=== PATIENT | male | born 1960 | race Caucasian/White ===

== ENCOUNTER 2021-09-03 16:24 | Emergency (ER) | payer BC ==
[~2021-09-03] VITALS: Ht 185.4 cm; Wt 102.1 kg
[2021-09-03 16:34] VITALS: BP_SYST 193
[2021-09-03] MEDS ORDERED: MORPHINE 4 MG INJ. 4 MG/ML VIAL IVP ONE (17:00)
[2021-09-03 17:58] LABS: BASOPHILS # (AUTO) 0.1 K/uL (0.0-0.2); BASOPHILS % (AUTO) 1.4 % (0.0-2.0); EOSINOPHILS % (AUTO) 0.1 % (0.0-4.0); HEMATOCRIT 42.4 % (36-54); HEMOGLOBIN 14.3 g/dL (14.0-18.0); LYMPHOCYTES # (AUTO) 0.9 K/uL (1.0-5.5); LYMPHOCYTES % (AUTO) 12.7 % (20.5-51.5); MEAN CORPUSCULAR HEMOGLOBIN 31 pg (27-31); MEAN CORPUSCULAR HGB CONC 34 % (32-36); MEAN CORPUSCULAR VOLUME 91 fL (79.0-98.0); MONOCYTES # (AUTO) 0.6 K/uL (0.0-1.0); MONOCYTES % (AUTO) 7.9 % (1.7-9.3); NEUTROPHILS # (AUTO) 5.7 K/uL (1.8-7.7); NEUTROPHILS % (AUTO) 77.9 % (40.0-70.0); PLATELET COUNT (AUTO) 236 K/uL (130-430); RED BLOOD CELL COUNT(AUTO) 4.67 MIL/uL (4.2-6.2); RED CELL DISTRIBUTION WIDTH 16.6 % (9.0-15.0); WHITE BLOOD COUNT (AUTO) 7.4 K/uL (4.8-10.8)
[2021-09-03 18:04] LABS: CALCIUM 9.1 mg/dL (8.4-11.0); CREATININE 1.05 mg/dL (0.55-1.30); POTASSIUM 3.4 mmol/L (3.5-5.1)
[2021-09-03 18:12] LABS: BILIRUBIN,URINE NEGATIVE (NEGATIVE); BLOOD, URINE 2+ (NEGATIVE); GLUCOSE,URINE NEGATIVE (NEGATIVE); KETONES,URINE 2+ (NEGATIVE); LEUKOCYTE ESTERASE ,URINE NEGATIVE (NEGATIVE); NITRITE, URINE NEGATIVE (NEGATIVE); PROTEIN URINE 3+ (NEGATIVE); UROBILINOGEN,URINE 0.2 (0.2-1.0)
[2021-09-03] MEDS ORDERED: LABETALOL 100 MG/ 20ML VIAL IVP ONE (18:15)
[2021-09-03 18:16] LABS: ALBUMIN 4.1 g/dL (3.4-4.8); TOTAL BILIRUBIN 1.4 mg/dL (0.0-1.0)
[2021-09-03] MEDS ORDERED: ONDANSETRON HCL 4 MG/2 ML VIAL ONE (18:44)
[2021-09-03] MEDS ORDERED: ONDANSETRON HCL 4 MG/2 ML VIAL IVP ONE (18:45)
[2021-09-03 18:47] LABS: CLARITY/URINE HAZY (CLEAR); COLOR,URINE AMBER (YELLOW)
[2021-09-03] MEDS ORDERED: NACL 0.9% 1,000 ML IV ONE (19:15)
[2021-09-03 19:41] LABS: BACTERIA,URINE FEW /HPF (None Seen); RBC,URINE 20-50 /HPF (0-3)
[2021-09-03 19:42] LABS: COARSE GRANULAR CASTS,URINE 0-10 /LPF (None Seen)
[2021-09-03 19:43] LABS: MUCUS,URINE 2+ /LPF (None Seen)
[2021-09-03] MEDS ORDERED: LOSARTAN POTASSIUM 50 MG TABLET (COZAAR) PO ONE (20:15)
[2021-09-03] MEDS ORDERED: cloNIDine HCL 0.1 MG TABLET PO ONE (20:15)
[2021-09-03] MEDS ORDERED: HYDROCHLOROTHIAZIDE 12.5 MG CAPSULE (HCTZ) PO ONE (20:15)
[2021-09-03] MEDS ORDERED: CARVEDILOL 6.25 MG TABLET (COREG) PO ONE (20:15)
[2021-09-03] MEDS ORDERED: cloNIDine HCL 0.1 MG TABLET ONE (20:17)
[2021-09-03] MEDS ORDERED: LOSARTAN POTASSIUM 50 MG TABLET (COZAAR) ONE (20:30)
[2021-09-03] MEDS ORDERED: hydrALAZINE HCL 20 MG/ML VIAL IVP ONE (23:15)
[2021-09-03 23:48] VITALS: BP_SYST 196
== END 2021-09-03 23:48 | disposition left against medical advice (07) ==
LOC: SED 16:24
DX: R10.9 Unspecified abdominal pain (principal); R11.2 Nausea with vomiting, unspecified; R77.8 Other specified abnormalities of plasma proteins; I10 Essential (primary) hypertension
CPT/HCPCS: 36415; 71045; 74177; 76376; 80053; 81000; 82962; 83690; 84484; 85025; 87086; 93005; 96361; 96374; 96375; 99285; J0360; J2270; J2405; J3490; J7030; Q9967

== ENCOUNTER 2021-12-11 12:56 | Emergency (ER) | payer BC, SELFPAY ==
[~2021-12-11] VITALS: Ht 185.4 cm; Wt 106.6 kg
[2021-12-11 13:11] VITALS: BP_SYST 207
== END 2021-12-11 14:04 | disposition left against medical advice (07) ==
LOC: SED 12:56
DX: R10.9 Unspecified abdominal pain (principal); Z53.21 Procedure and treatment not carried out due to patient leaving prior to being seen by health care provider

== ENCOUNTER 2023-02-20 18:08 | Inpatient (IN) | payer BC ==
[~2023-02-20] VITALS: Ht 185.4 cm; Wt 100.0 kg
--- NOTE | 2023-02-20 18:11 | NUR ---
Placed in room 01 . Placed on lease picker, blood pressure machine and pulse oximeter. To gown for exam. Side rails up. Report given to James CANTU
--- NOTE | 2023-02-20 18:11 | NUR ---
ER at bedside examining patient.
[2023-02-20 18:13] VITALS: BP_SYST 180
[2023-02-20] MEDS ORDERED: FUROSEMIDE 100 MG/10 ML VIAL IVP ONE (18:15)
--- NOTE | 2023-02-20 18:15 | NUR ---
EMT SWABBED FOR BOTH COVID AND FLU, PHLEBOTOMY AT BEDSIDE FOR LAB DRAW
--- NOTE | 2023-02-20 18:15 | NUR ---
RECIEVED PT IN BED #1 BIBA FROM [facility]RGENT [facility]ARE FOR CC OF WORSENING SOB. THE PATIENT NEEDED HIGHER LEVEL OF CARE AND [facility] WAS CALLED FOR TRANSFER. PT IS STABLE, MILD RESPIRATORY DISTRESS ON BIPAP, TACHYPNEIC, AND HYPERTENSIVE. PT AWAITING ADDITIONAL ASSESSMENTS BY ED MD FOR PLAN OF CARE WITH DISPOSITION.
[2023-02-20 18:43] LABS: BASOPHILS # (AUTO) 0.1 K/uL (0.0-0.2); BASOPHILS % (AUTO) 2.7 % (0.0-2.0); EOSINOPHILS # (AUTO) 0.2 K/uL (0.0-0.4); EOSINOPHILS % (AUTO) 4.4 % (0.0-4.0); HEMATOCRIT 31.8 % (36-54); HEMOGLOBIN 10.7 g/dL (14.0-18.0); LYMPHOCYTES # (AUTO) 0.8 K/uL (1.0-5.5); LYMPHOCYTES % (AUTO) 18.6 % (20.5-51.5); MEAN CORPUSCULAR HEMOGLOBIN 29 pg (27-31); MEAN CORPUSCULAR HGB CONC 34 % (32-36); MEAN CORPUSCULAR VOLUME 87 fL (79.0-98.0); MONOCYTES # (AUTO) 0.6 K/uL (0.0-1.0); MONOCYTES % (AUTO) 14.4 % (1.7-9.3); NEUTROPHILS # (AUTO) 2.6 K/uL (1.8-7.7); NEUTROPHILS % (AUTO) 59.9 % (40.0-70.0); PLATELET COUNT (AUTO) 185 K/uL (130-430); RED BLOOD CELL COUNT(AUTO) 3.64 MIL/uL (4.2-6.2); RED CELL DISTRIBUTION WIDTH 15.4 % (9.0-15.0); WHITE BLOOD COUNT (AUTO) 4.3 K/uL (4.8-10.8)
--- NOTE | 2023-02-20 18:55 | NUR ---
NOTIFIED PATIENT'S TO CONFIRM HIS LOCATION OF HOSPITAL. FAMILY WILL COME BY WITH HOME MEDICATIONS FOR MED RECONCILIATION.
[2023-02-20] MEDS ORDERED: cloNIDine HCL 0.1 MG TABLET PO ONE (19:15)
[2023-02-20 19:28] LABS: ALANINE AMINOTRANSFERASE 25 U/L (12-78); ALBUMIN 3.4 g/dL (3.4-4.8); ANION GAP 13 (5-15); ASPARTATE AMINOTRANSFERASE 23 U/L (10-37); CALCIUM 8.8 mg/dL (8.4-11.0); CHLORIDE 107 mmol/L (98-107); CREATININE 1.74 mg/dL (0.55-1.30); GFR AFRICAN AMERICAN 51 mL/min (>90); GLUCOSE 97 mg/dL (70-99); TOTAL BILIRUBIN 0.6 mg/dL (0.0-1.0); UREA NITROGEN, BLOOD 27 mg/dL (8-21)
[2023-02-20 19:35] LABS: BILIRUBIN,URINE NEGATIVE (NEGATIVE); BLOOD, URINE NEGATIVE (NEGATIVE); CLARITY/URINE CLEAR (CLEAR); COLOR,URINE YELLOW (YELLOW); GLUCOSE,URINE NEGATIVE (NEGATIVE); KETONES,URINE NEGATIVE (NEGATIVE); LEUKOCYTE ESTERASE ,URINE NEGATIVE (NEGATIVE); NITRITE, URINE NEGATIVE (NEGATIVE); PROTEIN URINE NEGATIVE (NEGATIVE); UROBILINOGEN,URINE 0.2 (0.2-1.0)
--- NOTE | 2023-02-20 19:46 | NUR ---
URINE OUTPUT 750 ML AFTER LASIX.
--- NOTE | 2023-02-20 20:24 | NUR ---
Admit bed requested Patient will be admitted to care of . Admitted to TELE unit. Diagnosis CHF EXACERBATION Inpatient (Yes or No) Y Observation (Yes or No) N Orientation concerns or request close to nursing station (Yes or No) N Covid Status NEG On vent or bipap YES Isolation requirements N Needs a sitter N From Home (Yes or if No enter name of facility) Y Requires Dialysis (Yes or No) N Med Rec Completed (Yes of No) Y
[2023-02-20] MEDS ORDERED: POTASSIUM CHLORIDE 20 MEQ/PKT PACKET PO ONE (20:30)
[2023-02-20] MEDS ORDERED: IPRATROPIUM/ALBUTEROL SULFATE 3 ML AMPUL.NEB (DUONEB) INH ONE (20:30)
[2023-02-20] MEDS ORDERED: BUSP10TA3 PO (20:34)
[2023-02-20] MEDS ORDERED: CLON0.3T PO (20:35)
[2023-02-20] MEDS ORDERED: LON10 PO (20:36)
[2023-02-20] MEDS ORDERED: SOLI10TA2 PO (20:39)
[2023-02-20] MEDS ORDERED: ARA20 PO (20:40)
[2023-02-20] MEDS ORDERED: LOSA100T4 PO (20:41)
[2023-02-20] MEDS ORDERED: POTA-197 PO (20:42)
[2023-02-20] MEDS ORDERED: LASI20 IVP (20:43)
[2023-02-20] MEDS ORDERED: HYDR25TA4 PO (20:44)
[2023-02-20] MEDS ORDERED: LAM100 PO (20:45)
[2023-02-20] MEDS ORDERED: SILD20TA PO (20:47)
[2023-02-20] MEDS ORDERED: ZOLPIDEM TARTRATE 5 MG TABLET PO PRN (21:00)
[2023-02-20] MEDS ORDERED: MORPHINE 2 MG/ML INJ. SYRINGE IVP PRN ×2 (21:00)
[2023-02-20] MEDS ORDERED: IPRATROPIUM/ALBUTEROL SULFATE 3 ML AMPUL.NEB (DUONEB) INH PRN (21:00)
[2023-02-20] MEDS ORDERED: DOCUSATE SODIUM 100 MG CAPSULE PO PRN (21:00)
[2023-02-20] MEDS ORDERED: MUPIROCIN 2% TOPICAL OINTMENT 22 GM NS PRN (21:00)
[2023-02-20] MEDS ORDERED: ONDANSETRON HCL 4 MG/2 ML VIAL IVP PRN (21:00)
[2023-02-20] MEDS: cloNIDine HCL 0.1 MG TABLET PO SCH (21:00)
[2023-02-20] MEDS ORDERED: MAGNESIUM SULFATE 50 ML IV PRN (21:00)
[2023-02-20] MEDS: LamoTRIgine 100 MG TABLET PO SCH (21:00)
[2023-02-20] MEDS ORDERED: ACETAMINOPHEN 325 MG TABLET PO PRN (21:00)
[2023-02-20] MEDS ORDERED: NACL 0.9% 1,000 ML IV SCH (21:00)
[2023-02-20] MEDS ORDERED: LORazepam 2 MG/ML VIAL IVP PRN (21:00)
[2023-02-20] MEDS: CARVEDILOL 6.25 MG TABLET (COREG) PO SCH (21:00)
--- NOTE | 2023-02-20 22:13 | NUR ---
Patient will be admitted to care of DR LOYOLA. Admitted to ROOM 129B TELE unit. Will go to room . Belongings list completed. Complete and up to date summary report printed. SBAR report to be given at bedside with opportunity for questions.
--- NOTE | 2023-02-20 22:28 | NUR ---
RECEIVED PT FROM ER VIA [facility], DENIED SOB, CP OR ANY PAIN ATT, ON 2L OF OXYGEN VIA N/C. COMPLETE SKIN CHECK AND SKIN INTACT, BLE WITH PITTING EDEMA +2, PATENT IV ACCESS TO LAC, BP ELEVATED, PT STARTED ON DUE MEDS, WILL RECHECK LATER, PT ORIENTED TO ROOM, CALL LIGHT AND BED POSITION, VERBALIZED UNDERSTAND, PT AMBULATORY TO RESTROOM, VOIDING, WILL CONTINUE WITH POC
[2023-02-20 22:32] VITALS: BP_SYST 186
[2023-02-20 22:35] VITALS: BP_SYST 180
[2023-02-20] MEDS: busPIRone HCL 5 MG TABLET PO SCH (22:55)
[2023-02-20] MEDS: HEPARIN SODIUM,PORCINE 5,000 UNITS/ML VIAL SUBCUT SCH (23:09)
[2023-02-20 23:46] VITALS: BP_SYST 154
[2023-02-21] VITALS (7 sets, daily range): BP systolic 142–169
--- NOTE | 2023-02-21 06:00 | NUR ---
CALLED DR KAMALA GONZALES REGARDING PT ELEVATED BP AT THIS TIME BP 169/94, HR 77, HE ORDERED TO GIVE AM DOSE OF COREG 6.25MG AT THIS TIME, ORDER NOTED AND CARRIED OUT, WILL RECHECK BP IN 20MINS, WILL CONTINUE WITH POC
[2023-02-21] MEDS: CARVEDILOL 6.25 MG TABLET (COREG) PO SCH (06:08)
--- NOTE | 2023-02-21 06:53 | NUR ---
PT IN BED, AOX4, DENIED SOB, CP, H/A, DIZZINESS OR ANY PAIN ATT, ON 2L OF OXYGEN VIA N/C. BP RECHECK ATT WAS BP 166/87, HR 76. PT DENIED ANY SX ATT, PT AMBULATORY TO RESTROOM, VOIDING W/O DIFFICULTY, IVF N/S AT 50CC TO LAC ONGOING W/O INFILTRATION, WILL ENDORSE CARE CONTINUITY TO NEXT SHIFT
[2023-02-21 07:51] LABS: BASOPHILS % (AUTO) 0.3 % (0.0-2.0); HEMATOCRIT 34.1 % (36-54); HEMOGLOBIN 11.3 g/dL (14.0-18.0); LYMPHOCYTES # (AUTO) 0.3 K/uL (1.0-5.5); LYMPHOCYTES % (AUTO) 6.3 % (20.5-51.5); MEAN CORPUSCULAR HEMOGLOBIN 29 pg (27-31); MEAN CORPUSCULAR HGB CONC 33 % (32-36); MEAN CORPUSCULAR VOLUME 87 fL (79.0-98.0); NEUTROPHILS % (AUTO) 92.4 % (40.0-70.0); PLATELET COUNT (AUTO) 203 K/uL (130-430); RED BLOOD CELL COUNT(AUTO) 3.91 MIL/uL (4.2-6.2); RED CELL DISTRIBUTION WIDTH 15.8 % (9.0-15.0); WHITE BLOOD COUNT (AUTO) 4.3 K/uL (4.8-10.8)
--- NOTE | 2023-02-21 08:00 | NUR ---
Initial Note: Patient is awake alert x4. Call light in reach. Bed in the lowest position. Side rails x2 up. Vital signs checked and assessment is done. No pain or discomfort at this time. Breakfast is provided. Will continue to monitor.
[2023-02-21 08:07] LABS: CALCIUM 9.1 mg/dL (8.4-11.0); CREATININE 1.49 mg/dL (0.55-1.30)
[2023-02-21] MEDS: cloNIDine HCL 0.1 MG TABLET PO SCH ×3 (08:20→20:55)
[2023-02-21] MEDS: FUROSEMIDE 40 MG/4 ML VIAL IVP SCH (08:22)
[2023-02-21] MEDS: HEPARIN SODIUM,PORCINE 5,000 UNITS/ML VIAL SUBCUT SCH ×2 (08:22→20:59)
[2023-02-21] MEDS: SILDENAFIL CITRATE 20 MG TABLET PO SCH (08:23)
[2023-02-21] MEDS: busPIRone HCL 5 MG TABLET PO SCH ×2 (08:23→20:06)
[2023-02-21] MEDS: MINOXIDIL 10 MG TABLET (LONITEN) PO SCH (08:23)
[2023-02-21] MEDS: LamoTRIgine 100 MG TABLET PO SCH ×2 (08:24→20:07)
[2023-02-21] MEDS ORDERED: AZITHROMYCIN 250 MG TABLET PO ONE (08:45)
[2023-02-21] MEDS ORDERED: HYDROXYCHLOROQUINE SULFATE 200 MG TABLET PO ONE (09:15)
[2023-02-21] MEDS: cefTRIAXone 1 GM in D5W 50 ML IV SCH (11:20)
[2023-02-21] MEDS: POTASSIUM CHLORIDE 20 MEQ TAB.PRT.SR PO PRN (11:20)
--- NOTE | 2023-02-21 13:45 | NUR ---
Note: Discontinue and disconnect the IV fluid as ordered. Patient tolerated well. No pain or discomfort at this time.
[2023-02-21] MEDS ORDERED: ZIT250 PO (16:15)
--- NOTE | 2023-02-21 16:21 | NUR ---
Note: Orthostatic Blood pressure checked and instructed patient to call nurse for a urine sample once he is urinated. Patient verbalized understanding.
--- NOTE | 2023-02-21 17:21 | NUR ---
Note: urine sample collected and sent to lab.
[2023-02-21 17:25] LABS: BILIRUBIN,URINE NEGATIVE (NEGATIVE); BLOOD, URINE NEGATIVE (NEGATIVE); CLARITY/URINE CLEAR (CLEAR); COLOR,URINE YELLOW (YELLOW); GLUCOSE,URINE NEGATIVE (NEGATIVE); KETONES,URINE NEGATIVE (NEGATIVE); LEUKOCYTE ESTERASE ,URINE NEGATIVE (NEGATIVE); NITRITE, URINE NEGATIVE (NEGATIVE); PH,URINE 5.5 (5.0-8.0); PROTEIN URINE NEGATIVE (NEGATIVE); UROBILINOGEN,URINE 0.2 (0.2-1.0)
--- NOTE | 2023-02-21 18:56 | NUR ---
Closing note: Patient is watching TV. Bed in the lowest position. Side rails x2 up. Call light in reach. No pain or discomfort at this time. Will endorse assistant shift supervisor nurse to continue patient care.
[2023-02-21] MEDS: CARVEDILOL 12.5 MG TABLET (COREG) PO SCH (20:06)
[2023-02-21] MEDS: HYDROXYCHLOROQUINE SULFATE 200 MG TABLET PO SCH (20:54)
[2023-02-21 21:05] LABS: URINE SODIUM, RANDOM 23 mmol/L (40-220)
[2023-02-22 00:22] VITALS: BP_SYST 139
[2023-02-22 06:00] VITALS: BP_SYST 133
[2023-02-22 06:35] LABS: BASOPHILS # (AUTO) 0.1 K/uL (0.0-0.2); BASOPHILS % (AUTO) 1.3 % (0.0-2.0); EOSINOPHILS % (AUTO) 0.4 % (0.0-4.0); HEMATOCRIT 30.6 % (36-54); HEMOGLOBIN 10.1 g/dL (14.0-18.0); LYMPHOCYTES # (AUTO) 0.8 K/uL (1.0-5.5); LYMPHOCYTES % (AUTO) 17.7 % (20.5-51.5); MEAN CORPUSCULAR HEMOGLOBIN 29 pg (27-31); MEAN CORPUSCULAR HGB CONC 33 % (32-36); MEAN CORPUSCULAR VOLUME 87 fL (79.0-98.0); MONOCYTES # (AUTO) 0.6 K/uL (0.0-1.0); MONOCYTES % (AUTO) 12.6 % (1.7-9.3); PLATELET COUNT (AUTO) 175 K/uL (130-430); RED BLOOD CELL COUNT(AUTO) 3.51 MIL/uL (4.2-6.2); RED CELL DISTRIBUTION WIDTH 15.6 % (9.0-15.0); WHITE BLOOD COUNT (AUTO) 4.5 K/uL (4.8-10.8)
[2023-02-22 06:45] LABS: CALCIUM 8.6 mg/dL (8.4-11.0); CREATININE 1.5 mg/dL (0.55-1.30)
--- NOTE | 2023-02-22 07:43 | NUR ---
no changes overnight, pt admits sleeping for 10hrs with CPAP endorsed care to morning RN
[2023-02-22 07:59] VITALS: BP_SYST 177
--- NOTE | 2023-02-22 08:00 | NUR ---
Start of shift. Pt ambulatory to restroom and now sitting up in bed eating his breakfast. Pt has O2 at 2L/nc. IV in LAC intact and patent at this time. Tele unit attached and intact. No SOB/resp distress noted at this time. Pt's bed in low position and side rails raised. Call light within reach.
[2023-02-22] MEDS: LamoTRIgine 100 MG TABLET PO SCH (08:36)
[2023-02-22] MEDS: busPIRone HCL 5 MG TABLET PO SCH (08:36)
[2023-02-22] MEDS: cloNIDine HCL 0.1 MG TABLET PO SCH ×2 (08:36→14:52)
[2023-02-22] MEDS: POTASSIUM CHLORIDE 20 MEQ TAB.PRT.SR PO PRN (08:36)
[2023-02-22] MEDS: SILDENAFIL CITRATE 20 MG TABLET PO SCH (08:36)
[2023-02-22] MEDS: HYDROXYCHLOROQUINE SULFATE 200 MG TABLET PO SCH (08:36)
[2023-02-22] MEDS: CARVEDILOL 12.5 MG TABLET (COREG) PO SCH (08:37)
[2023-02-22] MEDS: MINOXIDIL 10 MG TABLET (LONITEN) PO SCH (08:37)
[2023-02-22] MEDS: FUROSEMIDE 40 MG/4 ML VIAL IVP SCH (08:38)
[2023-02-22] MEDS: HEPARIN SODIUM,PORCINE 5,000 UNITS/ML VIAL SUBCUT SCH (08:43)
[2023-02-22] MEDS ORDERED: AZITHROMYCIN 250 MG TABLET PO SCH (09:00)
[2023-02-22 12:00] VITALS: BP_SYST 150
[2023-02-22] MEDS: cefTRIAXone 1 GM in D5W 50 ML IV SCH (12:01)
[2023-02-22] MEDS ORDERED: amLODIPine BESYLATE 10 MG TABLET PO ONE (13:45)
[2023-02-22 15:12] VITALS: BP_SYST 143
--- NOTE | 2023-02-22 15:40 | NUR ---
NOTE PT'S TELE UNIT WAS DC'D AND RETURNED TO PAINT POURER. IV IN LAC WAS DC'D. SITE BENIGN, NO SWELLING,BLEEDING OR INFILTRATION NOTED. PT DRESSED IN STREET CLOTHES AND PACKED ALL BELONGINGS. PT CHECKED SIDE TABLE AND DRAWERS FOR BELONGINGS. NO SOB/RESP DISTRESS NOTED.
[2023-02-22 15:50] VITALS: BP_SYST 147
--- NOTE | 2023-02-22 15:50 | NUR ---
DISCHARGE Pt off the floor ambulatory with all his belongings to front of hospital. Pt stable, no SOB/resp distress or pain/discomfort noted. Pt ambulates with steady gait all shift.
[2023-02-23] MEDS ORDERED: amLODIPine BESYLATE 10 MG TABLET PO SCH (09:00)
== END 2023-02-22 15:50 | disposition home or self-care (01) | DRG 193 ==
LOC: SED 18:08 → STU 20:20
PROVIDERS: ADMIT General Practice; ATTEND General Practice
PROC: 5A09457 Assistance with Respiratory Ventilation, 24-96 Consecutive Hours, Continuous Positive Airway Pressure (ICD-10-PCS; principal; 2023-02-20)
DX: J18.9 Pneumonia, unspecified organism (principal); I50.43 Acute on chronic combined systolic (congestive) and diastolic (congestive) heart failure; J96.01 Acute respiratory failure with hypoxia; N17.0 Acute kidney failure with tubular necrosis; I13.0 Hypertensive heart and chronic kidney disease with heart failure and stage 1 through stage 4 chronic kidney disease, or unspecified chronic kidney disease; J44.0 Chronic obstructive pulmonary disease with (acute) lower respiratory infection; E87.0 Hyperosmolality and hypernatremia; I42.6 Alcoholic cardiomyopathy; D84.9 Immunodeficiency, unspecified; I25.10 Atherosclerotic heart disease of native coronary artery without angina pectoris; F17.290 Nicotine dependence, other tobacco product, uncomplicated; E87.6 Hypokalemia; E78.5 Hyperlipidemia, unspecified; I27.20 Pulmonary hypertension, unspecified; I27.81 Cor pulmonale (chronic); N18.9 Chronic kidney disease, unspecified; G47.33 Obstructive sleep apnea (adult) (pediatric); Z20.822 Contact with and (suspected) exposure to COVID-19; E66.9 Obesity, unspecified; Z88.1 Allergy status to other antibiotic agents; Z88.2 Allergy status to sulfonamides; Z88.8 Allergy status to other drugs, medicaments and biological substances; Z79.899 Other long term (current) drug therapy; Z85.828 Personal history of other malignant neoplasm of skin; Z68.29 Body mass index [BMI] 29.0-29.9, adult
CPT/HCPCS: 36415; 71045; 76770; 80048; 80053; 81003; 82570; 83037; 83605; 83735; 83880; 84302; 84484; 85025; 87040; 87086; 93005; 93306; 94640; 94660; 94760; 96361; 96374; 99285; G0378; J0696; J1644; J1940; J2060; J7060; Q0144